=== PATIENT | female | born 1975 | race Caucasian/White ===

== ENCOUNTER 2017-03-17 18:47 | Emergency (ER) | payer MEDICAID, OTHER ==
[~2017-03-17] VITALS: Ht 152.4 cm; Wt 79.0 kg
[2017-03-17 18:48] VITALS: Ht 152.4 cm; Wt 79.0 kg
--- NOTE | 2017-03-17 19:37 | ERD ---
ER Documentation Chief Complaint Date/Time DATE: 03/17/17 TIME: 19:35 Chief Complaint MILD VAGINAL BLEEDING STARTED TODAY 5 WEEKS LOWER ABD PAIN 5/10 HPI 41-year-old female presents to emergency department for complaints of vaginal bleeding that started today, describes the bleeding as spotting. Patient is approximately 5 weeks , 4 para 3 abortions 0. LMP 02/10/2017. Patient denies any abdominal pain, flank pain. Patient denies any dysuria or hematuria. Patient denies any fever or chills. Patient denies any nausea or vomiting. ROS All systems reviewed and are negative except as per history of present illness. Medications Home Meds Reported Medications [none] Unknown Strength No Conflict Check 03/17/17 Allergies Allergies: Coded Allergies: No Known Allergy (Unverified , 03/17/17) PMhx/Soc Medical and Surgical Hx: pt denies Medical Hx, pt denies Surgical Hx History of Surgery: No Anesthesia Reaction: No Hx Neurological Disorder: No Hx Respiratory Disorders: No Hx Cardiac Disorders: No Hx Psychiatric Problems: No Hx Alcohol Use: No Hx Substance Use: No Hx Tobacco Use: No Smoking Status: Never smoker FmHx Family History: No coronary disease, No diabetes, No other Physical Exam Vitals Vital Signs Date Time Temp Pulse Resp B/P Pulse Ox O2 Delivery O2 Flow Rate FiO2 03/17/17 18:48 99.2 65 18 164/77 100 Physical Exam GENERAL: The patient is well developed and appropriate for usual state of health, in no apparent distress. CHEST: Clear to auscultation bilaterally. There are no rales, wheezes or rhonchi. HEART: Regular rate and rhythm. No murmurs, clicks, rubs or gallops. No S3 or S4. ABDOMEN: Soft, nontender and nondistended. Good bowel sounds. No rebound or guarding. No gross peritonitis. No gross organomegaly or masses. No Mac sign or McBurney point tenderness. BACK: No midline or flank tenderness. EXTREMITIES: Equal pulses bilaterally. There is no peripheral clubbing, cyanosis or edema. No focal swelling or erythema. Full range of motion. Grossly neurovascularly intact. NEURO: Alert and oriented. Cranial nerves 2-12 intact. Motor strength in all 4 extremities with 5/5 strength. Sensation grossly intact. Normal speech and gait. SKIN: There is no apparent rash or petechia. The skin is warm and dry. HEMATOLOGIC AND LYMPHATIC: There is no evidence of excessive bruising or lymphedema. No gross cervical, axillary, or inguinal lymphadenopathy. VAGINAL: Small amount of blood in the vaginal vault, cervical os closed, no cervical motion tenderness or adnexal tenderness noted. Result Diagram: 03/17/17 1930 Results 24 hrs Laboratory Tests Test 03/17/17 19:30 White Blood Count 10.010^3/ul Red Blood Count 4.2310^6/ul Hemoglobin 10.3g/dl Hematocrit 33.8% Mean Corpuscular Volume 79.9fl Mean Corpuscular Hemoglobin 24.3pg Mean Corpuscular Hemoglobin Concent 30.5g/dl Red Cell Distribution Width 16.2% Platelet Count 14874^3/UL Mean Platelet Volume 11.6fl Neutrophils % 60.3% Lymphocytes % 29.6% Monocytes % 6.5% Eosinophils % 2.6% Basophils % 0.7% Nucleated Red Blood Cells % 0.0/100WBC Neutrophils # 6.010^3/ul Lymphocytes # 3.010^3/ul Monocytes # 0.710^3/ul Eosinophils # 0.310^3/ul Basophils # 0.110^3/ul Nucleated Red Blood Cells # 0.010^3/ul Urine Color YELLOW Urine Clarity CLEAR Urine pH 5.0 Urine Specific [place] 1.014 Urine Ketones NEGATIVEmg/dL Urine Nitrite NEGATIVEmg/dL Urine Bilirubin NEGATIVEmg/dL Urine Urobilinogen NEGATIVEmg/dL Urine Leukocyte Esterase 1+Gely/ul Urine Microscopic RBC 9/HPF Urine Microscopic WBC 7/HPF Urine Squamous Epithelial Cells FEW/HPF Urine Hemoglobin 3+mg/dL Urine Glucose NEGATIVEmg/dL Urine Total Protein NEGATIVEmg/dl Beta HCG, Quantitative 35.5mIU/ml PROCEDURE: US Pelvis CLINICAL INDICATION: Pelvic pain. TECHNIQUE: Transabdominal and transvaginal sonographic evaluation of the pelvis was performed. COMPARISON: None. FINDINGS: Myometrium is homogeneous in echotexture without fibroids. Endometrium is diffusely thickened without a focal abnormality. Normal flow to both ovaries. No adnexal mass. No free pelvic fluid. MEASUREMENTS: Uterus: 8.8 x 6.8 x 2.2 cm, retroverted Endometrium: 1.7 cm Right ovary size: 2.2 x 1.4 x 2.0 cm Left ovary size: 1.7 x 1.0 x 0.9 cm IMPRESSION: Nonspecific diffuse thickening and mild heterogeneity of the endometrial cavity without visualization of an intrauterine . There is no adnexal mass. Recommend correlation with serial serum maternal beta HCG levels and close interval sonographic follow-up. RPTAT: EE .Gonzalez Victor MD, MD Date Time Electronically viewed and signed by .Gonzalez Victor MD, on 03/17/2017 20:01 .C/ CC: YI GUTIERREZ HELPER COORDINATOR Procedures/MDM Medical Decision Making: Patients vaginal bleeding is most likely consistent with her menstruation. Patient has negative test in the urine and in the beta hCG. Patient does not show any evidence of hypovolemic shock. Patient s hemoglobin and hematocrit is stable. There is low suspicion for ectopic . DAMARIS results show no intrauterine BetaHCG Quantitative is low for The patient is Rh+, does not need RhoGAM this time. There is no signs of symptoms of dehydration. There is low suspicion for sepsis. Patient appears well and is hemodynamically stable. She also has urinary tract infection and will be treated. No symptoms of pyelonephritis. Disposition: Home. Condition: Stable Rx: Keflex Instructions: Patient is advised to do bed rest, avoid heavy lifting, and avoid having sex until cleared by OB doctor. Patient is advised to follow up with OB doctor for further evaluation of symptoms. Patient is advised that is symptoms are worst, severe bleeding, dizziness, severe abdominal pain, fever, worst signs and symptoms to return to the emergency department immediately. Departure Diagnosis: Primary Impression: Vaginal bleeding Additional Impression: UTI (urinary tract infection) Urinary tract infection type: acute cystitis Hematuria presence: without hematuria Qualified Code: N30.00 - Acute cystitis without hematuria Condition: Stable Patient Instructions: Dysfunctional Uterine Bleeding, Understanding Urinary Tract Infections (UTIs) Additional Instructions: Patient is advised to do bed rest, avoid heavy lifting, and avoid having sex until cleared by OB doctor. Patient is advised to follow up with OB doctor for further evaluation of symptoms. Patient is advised that is symptoms are worst, severe bleeding, dizziness, severe abdominal pain, fever, worst signs and symptoms to return to the emergency department immediately. YI GUTIERREZ. SHO Mar 17, 2017 19:37
[2017-03-17 19:40] LABS: BASOPHIL # 0.1 10^3/ul (0.0-0.1); BASOPHILS % 0.7 % (0.0-2.0); EOSINOPHILS # 0.3 10^3/ul (0.0-0.5); EOSINOPHILS % 2.6 % (0.0-7.0); HEMATOCRIT 33.8 % (37.0-47.0); HEMOGLOBIN 10.3 g/dl (12.0-16.0); LYMPHOCYTES % 29.6 % (15.0-51.0); MEAN CORPUSCULAR HEMOGLOBIN 24.3 pg (29.0-33.0); MEAN CORPUSCULAR HGB CONC 30.5 g/dl (32.0-37.0); MEAN CORPUSCULAR VOLUME 79.9 fl (82.0-101.0); MEAN PLATELET VOLUME 11.6 fl (7.4-10.4); MONOCYTE # 0.7 10^3/ul (0.3-0.9); MONOCYTES % 6.5 % (0.0-11.0); NEUTROPHILS % 60.3 % (39.0-77.0); PLATELET COUNT 201 10^3/UL (140-415); RED BLOOD COUNT 4.23 10^6/ul (4.20-5.40); RED CELL DISTRIBUTION WIDTH 16.2 % (11.5-14.5)
[2017-03-17 19:51] LABS: ADD UMIC YES; UR ASCORBIC ACID NEGATIVE (NEGATIVE); UR BILIRUBIN (Dip) NEGATIVE (NEGATIVE); UR BLOOD (Dip) 3+ mg/dL (NEGATIVE); UR CLARITY CLEAR (CLEAR); UR COLOR YELLOW (YELLOW); UR GLUCOSE (Dip) NEGATIVE (NEGATIVE); UR KETONES (Dip) NEGATIVE (NEGATIVE); UR LEUKOCYTE ESTERASE (Dip) 1+ Leu/ul (NEGATIVE); UR NITRITE (Dip) NEGATIVE (NEGATIVE); UR RBC 9 /HPF (0-5); UR SPECIFIC GRAVITY (Dip) 1.014 (1.003-1.030); UR SQUAMOUS EPITHELIAL CELL FEW /HPF (FEW); UR TOTAL PROTEIN (Dip) NEGATIVE (NEGATIVE); UR UROBILINOGEN (Dip) NEGATIVE (NEGATIVE)
--- NOTE | 2017-03-17 20:02 | RADRPT ---
PROCEDURE: US Pelvis CLINICAL INDICATION: Pelvic pain. TECHNIQUE: Transabdominal and transvaginal sonographic evaluation of the pelvis was performed. COMPARISON: None. FINDINGS: Myometrium is homogeneous in echotexture without fibroids. Endometrium is diffusely thickened without a focal abnormality. Normal flow to both ovaries. No adnexal mass. No free pelvic fluid. MEASUREMENTS: Uterus: 8.8 x 6.8 x 2.2 cm, retroverted Endometrium: 1.7 cm Right ovary size: 2.2 x 1.4 x 2.0 cm Left ovary size: 1.7 x 1.0 x 0.9 cm IMPRESSION: Nonspecific diffuse thickening and mild heterogeneity of the endometrial cavity without visualizatio n of an intrauterine . There is no adnexal mass. Recommend correlation with serial serum maternal beta HCG levels and close interval sonographic foll ow-up. RPTAT: EE .Gonzalez Victor MD, Date Time Electronically viewed and signed by .Gonzalez Victor MD, on 03/17/2017 20:01 .C/
[2017-03-17] MEDS ORDERED: CEPH-443 PO (21:05)
[2017-03-17 21:22] VITALS: BP 157/72; PULSE 70; RESP 17; TEMP 98.9
== END 2017-03-17 21:23 | disposition home or self-care (01) ==
LOC: FTE 18:47
DX: O20.9 Hemorrhage in early pregnancy, unspecified (principal); O23.41 Unspecified infection of urinary tract in pregnancy, first trimester; R10.2 Pelvic and perineal pain; Z3A.01 Less than 8 weeks gestation of pregnancy
CPT/HCPCS: 36415; 76801; 76817; 81001; 84702; 85025; 86900; 86901; Z7502

== ENCOUNTER 2018-06-11 14:17 | Inpatient (IN) | END 2018-06-15 16:21 | disposition home or self-care (01) | DRG 805 ==